=== PATIENT | female | born 1975 | race Caucasian/White ===

== ENCOUNTER 2017-01-31 05:59 | Emergency (ER) | payer OTHER ==
[2017-01-31 08:05] VITALS: BP 133/79
== END 2017-01-31 08:05 | disposition home or self-care (01) ==
LOC: ED 05:59
DX: M62.838 Other muscle spasm (principal); M54.30 Sciatica, unspecified side
CPT/HCPCS: J1885

== ENCOUNTER 2018-11-26 06:45 | Emergency (ER) | payer OTHER ==
[~2018-11-26] VITALS: Ht 160 cm; Wt 74.8 kg
[2018-11-26 06:51] VITALS: BP 157/110; Ht 160 cm; Wt 74.8 kg
== END 2018-11-26 08:29 | disposition home or self-care (01) ==
LOC: ED 06:45
DX: J01.90 Acute sinusitis, unspecified (principal); E78.00 Pure hypercholesterolemia, unspecified; F41.9 Anxiety disorder, unspecified; M19.90 Unspecified osteoarthritis, unspecified site; M54.30 Sciatica, unspecified side
CPT/HCPCS: J1885

== ENCOUNTER 2019-04-23 10:01 | Emergency (ER) | payer OTHER ==
[~2019-04-23] VITALS: Ht 160 cm; Wt 77.1 kg
[2019-04-23 10:06] VITALS: BP 127/68; Ht 160 cm; Wt 77.1 kg
== END 2019-04-23 10:50 | disposition home or self-care (01) ==
LOC: ED 10:01
DX: R05 Cough (principal); M54.6 Pain in thoracic spine; M19.90 Unspecified osteoarthritis, unspecified site
CPT/HCPCS: J1885